=== PATIENT | female | born 1955 | race Caucasian/White ===

== ENCOUNTER → 2017-08-10 | Outpatient (CLI) | payer OTHER ==
[2017-08-10 12:14] LABS: HEMATOCRIT 40.8 % (37.0-47.0); HEMOGLOBIN 14.1 g/dl (12.5-16.0); MEAN CELL VOLUME 92 fl (80.0-100.0); MEAN CORPUSCULAR HEMOGLOBIN 32 pg (27.0-31.0); MEAN CORPUSCULAR HGB CONC 35 g/dl (33.0-37.0); MEAN PLATELET VOLUME 13.4 fl (7.4-10.4); PLATELET COUNT 157 K/mm3 (130-400); RED BLOOD COUNT 4.45 M/mm3 (4.10-5.30); REDCELL DISTRIBUTION WIDTH-CV 12.4 % (11.5-14.5)
[2017-08-10 12:25] LABS: ALBUMIN 4.3 gm/dL (3.5-5.0); CALCIUM 10.2 mg/dL (8.4-10.2); CHOLESTEROL RISK RATIO 4.3; CREATININE, serum 1.82 mg/dL (0.52-1.25); POTASSIUM 4.6 mmol/L (3.4-5.0)
== END ==
LOC: COL.LAB 11:12
DX: I10 Essential (primary) hypertension (principal); E78.5 Hyperlipidemia, unspecified; E11.9 Type 2 diabetes mellitus without complications

== ENCOUNTER 2018-07-18 06:19 | Day surgery (SDC) | payer MEDICARE, OTHER ==
[2018-07-18] VITALS (12 sets, daily range): BP systolic 121–162; BP diastolic 59–86; PULSE 56–62; TEMP 98.6
[~2018-07-18] VITALS: Ht 170.2 cm; Wt 114.1 kg
[2018-07-18 07:11] LABS: HEMATOCRIT 40.5 % (37.0-47.0); HEMOGLOBIN 13.9 g/dl (12.5-16.0); MEAN CELL VOLUME 91 fl (80.0-100.0); MEAN CORPUSCULAR HEMOGLOBIN 31 pg (27.0-31.0); MEAN CORPUSCULAR HGB CONC 34 g/dl (33.0-37.0); MEAN PLATELET VOLUME 13.1 fl (7.4-10.4); PLATELET COUNT 124 K/mm3 (130-400); RED BLOOD COUNT 4.44 M/mm3 (4.10-5.30); REDCELL DISTRIBUTION WIDTH-CV 11.8 % (11.5-14.5)
[2018-07-18 07:26] LABS: CREATININE, serum 1.41 (0.52-1.25)
[2018-07-18 07:31] LABS: PROTHROMBIN TIME 11.2 SECONDS (9.7-12.8)
[2018-07-18] MEDS ORDERED: LOPRESSOR 550 MG/TAB PO (07:34)
[2018-07-18] MEDS ORDERED: HCTZ 25MG TAB25 MG PO (07:34)
[2018-07-18] MEDS ORDERED: ZESTRIL40 MG PO (07:35)
[2018-07-18] MEDS ORDERED: GLUCOTROL10 MG PO (07:36)
[2018-07-18] MEDS ORDERED: PRAVACHOL 40MG40 MG PO (07:37)
[2018-07-18] MEDS ORDERED: ASPIRIN 81M81 MG/TA2 PO (07:38)
[2018-07-18] MEDS ORDERED: CELEXA40 MG PO (07:38)
[2018-07-18] MEDS ORDERED: CALCIUM CARBON650 M2 PO (07:41)
[2018-07-18] MEDS ORDERED: EPA FISH OIL1 SGL PO (07:42)
[2018-07-18] MEDS ORDERED: ULTRAM 50MG TAB50 MG PO (07:43)
[2018-07-18] MEDS ORDERED: TYLENOL 325MG325 MG PO (07:44)
[2018-07-18] MEDS ORDERED: IMDUR 30MG30 MG/TAB PO (07:44)
--- NOTE | 2018-07-18 09:04 | NUR ---
SEE MERGE REPORTS FOR MEDICATION ADMINISTRATION TIMES AND INTRA/POST PROCEDURE SEDATION ASSESSMENTS.
--- NOTE | 2018-07-18 10:05 | NUR ---
PT TAKEN FROM [facility] [facility] TO [facility] AT THIS TIME. BEDSIDE HANDOFF WITH [facility] RNOTTO. MONITORING EQUIPMENT IN PLACE. VS'S STABLE AT THIS TIME. PT ALERT AND AWAKE. RIGHT RADIAL ACCESS SITE OBSERVED WITH [facility] RN; TR BAND INTACT WITH 11 ML AIR. NO BLEEDING, OOZING, BRUISING, OR SIGN OF HEMATOMA NOTED AT THIS TIME. DISTAL CAP REFILL <3 SEC.
--- NOTE | 2018-07-18 14:00 | NUR ---
Discharge instructions gien to pt.pt verbalizes understanding.INT removed,catheter tip intact.Pt escorted out via wheelchair by this nurse.
== END 2018-07-18 14:09 | disposition home or self-care (01) ==
LOC: COL.CAR 06:19
PROVIDERS: Internal Medicine Cardiovascular Disease
DX: I25.10 Atherosclerotic heart disease of native coronary artery without angina pectoris (principal); I10 Essential (primary) hypertension; E78.5 Hyperlipidemia, unspecified; Z79.899 Other long term (current) drug therapy; Z79.82 Long term (current) use of aspirin; Z87.891 Personal history of nicotine dependence; Z82.49 Family history of ischemic heart disease and other diseases of the circulatory system; Z82.0 Family history of epilepsy and other diseases of the nervous system; E11.9 Type 2 diabetes mellitus without complications; E78.00 Pure hypercholesterolemia, unspecified; Z79.84 Long term (current) use of oral hypoglycemic drugs
CPT/HCPCS: J1644; J2250; J3010; Q9967

== ENCOUNTER 2022-05-12 11:41 | Emergency (ER) | payer MEDICARE, OTHER ==
[~2022-05-12] VITALS: Ht 170.2 cm; Wt 100.0 kg
[~2022-05-12 11:41] MED LIST: AMOXICILLIN 8751 TAB PO; ASPIRIN 81M81 MG/TA2 PO; CALCIUM CARBON650 M2 PO; CELEXA40 MG PO; EPA FISH OIL1 SGL PO; GLUCOTROL10 MG PO; HCTZ 25MG TAB25 MG PO; HCTZ12.5TAB; IMDUR 30MG30 MG/TAB PO; JANUVIA25 MG PO; LEVEMIR FLEX100 U/ML SQ; LOPRESSOR 550 MG/TAB PO; NORCO 325 MG-51 TAB PO; PRAVACHOL 40MG40 MG PO; PRAVACHOL80 MG; TYLENOL 325MG325 MG PO; ULTRAM 50MG TAB50 MG PO; ZESTRIL40 MG PO; ZYLOPRIM 300MG300 MG PO
[2022-05-12 11:42] VITALS: TEMP 97.5
[2022-05-12] MEDS ORDERED: NORCO 325 MG-51 TAB PO (13:47)
[2022-05-12 14:14] VITALS: BP 153/73; PULSE 65
== END 2022-05-12 14:14 | disposition home or self-care (01) ==
LOC: COL.ER 11:41
DX: S80.211A Abrasion, right knee, initial encounter (principal); S79.912A Unspecified injury of left hip, initial encounter; S79.911A Unspecified injury of right hip, initial encounter; Z87.891 Personal history of nicotine dependence; W01.0XXA Fall on same level from slipping, tripping and stumbling without subsequent striking against object, initial encounter; X50.1XXA Overexertion from prolonged static or awkward postures, initial encounter